=== PATIENT | female | born 1995 | race Caucasian/White ===

== ENCOUNTER 2022-12-11 08:42 | Day surgery (SDC) | payer BC ==
[~2022-12-11] VITALS: Ht 152.4 cm; Wt 69.5 kg
[2022-12-11] MEDS ORDERED: DULO30 PO (09:22)
--- NOTE | 2022-12-11 09:36 | NUR ---
12/11/22 0936 DINESH LUNA PT ALERT AND COOPERATIVE WITH CARE.
[2022-12-11 10:51] VITALS: BP 109/75
== END 2022-12-11 10:49 | disposition home or self-care (01) ==
LOC: ORSCSDS 08:42
PROVIDERS: Specialist
PROC: 0DJD8ZZ Inspection of Lower Intestinal Tract, Via Natural or Artificial Opening Endoscopic (ICD-10-PCS; principal; 2022-12-11 10:45)
DX: K59.09 Other constipation (principal); K64.4 Residual hemorrhoidal skin tags; K64.8 Other hemorrhoids; R10.9 Unspecified abdominal pain; K62.5 Hemorrhage of anus and rectum; Z79.899 Other long term (current) drug therapy
CPT/HCPCS: J2704; J7120

== ENCOUNTER 2024-07-25 07:54 | Emergency (ER) | payer BC ==
[~2024-07-25] VITALS: Ht 152.4 cm; Wt 57.1 kg
[~2024-07-25 07:54] MED LIST: DULO30 PO
[2024-07-25 08:39] VITALS: BP 128/76
[2024-07-25] MEDS ORDERED: CEPH500 PO (09:40)
[2024-07-25] MEDS ORDERED: OZEMPIC1 MG/0.72 SQ (09:40)
[2024-07-25 10:06] LABS: Source, Urine Clean Catch
[2024-07-25 10:16] LABS: Appearance, Urine Clear (Clear); Bilirubin, Urine Neg (Neg); Blood, Urine 2+ (Neg); Color, Urine Yellow (P-Yellow); Glucose Qualitative, Urine Neg (Neg); Ketones, Urine 3+ (Neg); Leukocyte Esterase, Urine 1+ (Neg); Nitrite, Urine Neg (Neg); Protein, Urine 2+ (Neg); Specific Gravity, Urine 1.025 (1.003-1.022); Urobilinogen, Urine 1+ (Normal)
[2024-07-25] MEDS ORDERED: SULTRIDS PO (10:18)
[2024-07-25 10:28] LABS: Amorphous Light (0-Heavy); Bacteria Few /hpf; Hyaline Casts 0-2 /lpf (0-2); Mucus Light (0-Heavy); Squamous Epithelial Cells Few /hpf (Few)
[2024-07-25 10:29] LABS: Yeast/Fungi Urine Rare /hpf
== END 2024-07-25 10:35 | disposition home or self-care (01) ==
LOC: ER 07:54
PROVIDERS: Student in an Organized Health Care Education/Training Program
DX: J03.90 Acute tonsillitis, unspecified (principal); F32.A Depression, unspecified; Z79.899 Other long term (current) drug therapy
CPT/HCPCS: 36415; 81001; 86308; 87081; 87086; 87430; 99283